=== PATIENT | female | born 1930 | race Caucasian/White ===

== ENCOUNTER 2017-06-13 14:32 | Emergency (ER) | payer OTHER ==
[~2017-06-13] VITALS: Ht 152.4 cm; Wt 57.0 kg
[~2017-06-13 14:32] MED LIST: ASPIR 8181 M1; ATIVAN0.5 MG PO; Ativan PO; BONIVA150 MG PO; CALCIUM 600 +1 EAC1 PO; CALTRATE 6001 TABLE2 PO; COLACE100 MG PO; COUMADIN,JANTOVE5 MG PO; Coumadin,Jantoven PO; Dilaudid PO; Duragesic TD; Feosol PO; HYDROCHLOROTHIA50 MG PO; Hydrodiuril,Oretic,E PO; K-Dur PO; KEFLEX500 MG PO; LIDODERM 5% P1 PATCH PO; LIDODERM 5% P1 PATCH TD; LOVENOX40 MG/0.4 SC; LYRICA100 MG PO; Levaquin PO; Lidoderm 5% Patch TD; MIRALAX, GLYCO255 G1 PO; MIRALAX, GLYCOL1 PK1 PO; MS Contin,Oramorph S PO; Miralax, Glycolax PO; NEURONTIN300 MG PO; Nucynta PO; OMEGA 3 1,0001 EACH PO; Oyst-Cal D, Oscal W/ PO; PREVACID15 MG PO; Protonix PO; RESTORIL15 MG PO; RESTORIL30 MG PO; Remove Duragesic Pat TD; SYSTANE ULTRA 015 ML; Senokot S,Pericolace PO; THERAGRAN1 TABLET PO; Tylenol Regular Stre PO; WYGESIC,DARV1 TABLET PO
[2017-06-13] MEDS ORDERED: HYDROCODON-ACE1 EAC7 PO (14:56)
[2017-06-13] MEDS ORDERED: XARELTO15 MG PO (19:11)
[2017-06-13 19:35] VITALS: BP 168/87
== END 2017-06-13 19:36 | disposition home or self-care (01) ==
LOC: EME 14:32
DX: I82.401 Acute embolism and thrombosis of unspecified deep veins of right lower extremity (principal); Z96.651 Presence of right artificial knee joint; K21.9 Gastro-esophageal reflux disease without esophagitis; I10 Essential (primary) hypertension; Z86.718 Personal history of other venous thrombosis and embolism
CPT/HCPCS: 73502; 73564; 93971; 99281; 99284; J1885

== ENCOUNTER 2017-06-28 06:36 | Emergency (ER) | payer OTHER ==
[~2017-06-28] VITALS: Ht 149.9 cm; Wt 52.5 kg
[~2017-06-28 06:36] MED LIST changes: +HYDROCODON-ACE1 EAC7 PO; +XARELTO15 MG PO
[2017-06-28 09:40] VITALS: BP 123/54
== END 2017-06-28 09:41 | disposition home or self-care (01) ==
LOC: EME 06:36
DX: S70.02XA Contusion of left hip, initial encounter (principal); W18.30XA Fall on same level, unspecified, initial encounter; K21.9 Gastro-esophageal reflux disease without esophagitis; I10 Essential (primary) hypertension
CPT/HCPCS: 72170; 99281; 99284; J2270

== ENCOUNTER 2018-01-25 14:47 | Emergency (ER) | payer OTHER ==
[~2018-01-25] VITALS: Ht 121.9 cm; Wt 48.5 kg
[2018-01-25 15:25] LABS: BASOPHIL (%) 0.2 % (0-1); EOSINOPHIL (%) 0 % (0-5); HEMATOCRIT 33.3 % (36.0-46.0); HEMOGLOBIN 11.3 G/DL (11.9-15.5); IMMATURE GRANULOCYTE (%) 0.9 % (0.0-0.7); LYMPHOCYTE (%) 9.6 % (15-42); LYMPHOCYTE COUNT 1.5 K/uL (1.0-2.8); MCH 28.7 PG (29.0-34.0); MCHC 33.9 G/DL (30.0-36.0); MCV 84.5 FL (83-99); MONOCYTE (%) 10.1 % (3-12); MONOCYTE COUNT 1.6 K/uL (0-0.8); NEUTROPHIL (%) 79.2 % (45-76); NEUTROPHIL COUNT 12.5 K/uL (1.8-6.4); PLATELET COUNT 293 K/uL (156-360); RBC DIS.WIDTH-SD 43.6 % (39-53); RED BLOOD COUNT 3.94 M/uL (3.80-5.20); WHITE BLOOD COUNT 15.7 K/uL (4.1-10.2)
[2018-01-25 15:32] LABS: CHLORIDE 92 mEq/L (99-109); POTASSIUM 3.5 mEq/L (3.7-5.4)
[2018-01-25 15:33] LABS: SODIUM 130 mEq/L (136-147)
[2018-01-25 15:34] LABS: GLUCOSE 109 mg/dL (70-99)
[2018-01-25 15:38] LABS: CREATININE 0.8 mg/dL (0.6-1.3); GFR ESTIMATE (CALCULATED) > 59 mL/min/
[2018-01-25 15:39] LABS: UREA NITROGEN (BUN) 11 mg/dL (9-23)
[2018-01-25] MEDS ORDERED: LEVAQUIN750 MG PO (17:15)
[2018-01-25 17:30] VITALS: BP 136/77
== END 2018-01-25 17:40 | disposition home or self-care (01) ==
LOC: EME 14:47
PROVIDERS: Emergency Medicine
DX: J18.9 Pneumonia, unspecified organism (principal); K21.9 Gastro-esophageal reflux disease without esophagitis; I10 Essential (primary) hypertension; F41.9 Anxiety disorder, unspecified; Z88.5 Allergy status to narcotic agent; Z88.0 Allergy status to penicillin
CPT/HCPCS: 71045; 80048; 85025; 87070; 87205; 93005; 94640; 99281; 99285

== ENCOUNTER 2018-01-31 12:32 | Emergency (ER) | payer OTHER ==
[~2018-01-31] VITALS: Ht 152.4 cm; Wt 47.7 kg
[~2018-01-31 12:32] MED LIST changes: +LEVAQUIN750 MG PO
[2018-01-31] MEDS ORDERED: NORCO 5/3251 TABLET PO (13:26)
[2018-01-31 14:01] VITALS: BP 176/83
== END 2018-01-31 14:03 | disposition home or self-care (01) ==
LOC: EME 12:32
DX: S50.02XA Contusion of left elbow, initial encounter (principal); S56.912A Strain of unspecified muscles, fascia and tendons at forearm level, left arm, initial encounter; X58.XXXA Exposure to other specified factors, initial encounter; I10 Essential (primary) hypertension; G89.29 Other chronic pain; F41.9 Anxiety disorder, unspecified; K21.9 Gastro-esophageal reflux disease without esophagitis; Z85.828 Personal history of other malignant neoplasm of skin; Z88.5 Allergy status to narcotic agent; Z88.0 Allergy status to penicillin
CPT/HCPCS: 73080; 99281; 99284